=== PATIENT | female | born 2000 | race African-American/Black ===

== ENCOUNTER 2025-02-04 00:57 | Emergency (ER) | payer OTHER ==
[~2025-02-04] VITALS: Ht 180.3 cm; Wt 114.0 kg
[2025-02-04 00:59] VITALS: O2SAT 98
[2025-02-04 01:53] VITALS: BP 120/78; PULSE 81; RESP 18; TEMP 36.7; O2SAT 100
== END 2025-02-04 01:55 | disposition home or self-care (01) ==
LOC: ER 00:57
DX: F41.9 Anxiety disorder, unspecified (principal); J45.909 Unspecified asthma, uncomplicated; Z88.8 Allergy status to other drugs, medicaments and biological substances
CPT/HCPCS: 99283

== ENCOUNTER 2025-02-04 02:03 | Emergency (ER) | payer OTHER ==
[2025-02-04 02:07] VITALS: PULSE 82; RESP 20; O2SAT 98
== END 2025-02-04 02:50 | disposition left against medical advice (07) ==
LOC: ER 02:14
DX: R45.851 Suicidal ideations (principal); Z53.21 Procedure and treatment not carried out due to patient leaving prior to being seen by health care provider